=== PATIENT | female | born 1995 | race Caucasian/White ===

== ENCOUNTER 2022-05-19 12:57 | Emergency (ER) | payer OTHER ==
[2022-05-19] MEDS ORDERED: Sodium Chloride 0.9% 1,000 ML IV STA (14:19)
[2022-05-19] MEDS ORDERED: Pantoprazole 40 MG Vial IVPUSH ONE (14:20)
[2022-05-19] MEDS ORDERED: Ondansetron 4 MG/2 ML SDV IVPUSH ONE (14:20)
[2022-05-19 14:57] LABS: ESTIMATED GFR 103 mL/min (>60)
[2022-05-19] MEDS ORDERED: Ketorolac 30 MG/ML SDV IVPUSH ONE (15:35)
[2022-05-19] MEDS ORDERED: Acetaminophen 500 MG Tab PO ONE (16:45)
[2022-05-19] MEDS ORDERED: Naproxen 250 MG Tab PO ONE (16:46)
== END 2022-05-19 17:16 | disposition home or self-care (01) ==
LOC: JP.ED 12:57
DX: K52.9 Noninfective gastroenteritis and colitis, unspecified (principal); Z20.822 Contact with and (suspected) exposure to COVID-19
CPT/HCPCS: 36415; 80053; 81001; 85025; 87635; 96361; 96374; 96375; 99284; A9270; C9113; J1885; J2405; J7030; U0002